=== PATIENT | male | born 2005 | race African-American/Black ===

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

== ENCOUNTER 2023-01-25 07:29 | Emergency (ER) | payer MEDICAID ==
[~2023-01-25] VITALS: Ht 167.6 cm; Wt 53.5 kg
[2023-01-25 07:57] VITALS: BP 147/93
--- NOTE | 2023-01-25 08:04 | NUR ---
MD STERN AT BEDSIDE FOR EVALUATION
[2023-01-25] MEDS: DEXAMETHASONE 4 MG/ML VIAL PO ONE (08:33)
[2023-01-25] MEDS: KETOROLAC 15 MG/ML VIAL IM ONE (08:35)
--- NOTE | 2023-01-25 08:50 | NUR ---
lab at bedside
--- NOTE | 2023-01-25 09:09 | NUR ---
The patient's care was reviewed and supervised by AMADA MACIAS RN.
[2023-01-25] MEDS ORDERED: AMOX1TAB8 PO (09:13)
[2023-01-25] MEDS ORDERED: IBUP-2213 PO (09:14)
[2023-01-25 09:32] VITALS: BP 135/88
--- NOTE | 2023-01-25 09:32 | NUR ---
Patient discharged with v/s stable. Written and verbal after care instructions FOR TONSILLITIS given and explained. Patient alert, oriented and verbalized understanding of instructions. Ambulatory with steady gait. All questions addressed prior to discharge. ID band removed. Patient advised to follow up with PMD. Rx of AMOXICILLIN AND IBUOPROFEN given. Opportunity to ask questions provided and answered.
== END 2023-01-25 09:32 | disposition home or self-care (01) ==
LOC: MED 07:29
DX: J03.90 Acute tonsillitis, unspecified (principal); F90.9 Attention-deficit hyperactivity disorder, unspecified type; Z79.899 Other long term (current) drug therapy
CPT/HCPCS: 86308; 87081; 96372; 99283; J1100; J1885